=== PATIENT | male | born 1990 ===

== ENCOUNTER 2017-10-05 12:03 | Emergency (ER) | payer OTHER ==
[2017-10-05] MEDS ORDERED: DiphenhydrAMINE 50 mg/ml Inj IVP STA (12:51)
[2017-10-05] MEDS ORDERED: Sodium Chloride 0.9% 1,000 ML IV ONE (12:52)
[2017-10-05 13:01] LABS: BASO % 0.8 % (0.0-2.0); EOS # 0.2 K/uL (0.0-0.7); EOS % 4.2 % (0.0-4.0); HEMOGLOBIN 13.6 g/dL (12.0-18.0); LYMPH # 1.7 K/uL (1.0-4.3); LYMPH % 31.2 % (20.0-40.0); MEAN CELL VOLUME 84.5 fL (80.0-94.0); MEAN CORPUSCULAR HEMOGLOBIN 27.9 pg (27.0-31.0); MEAN PLATELET VOLUME 9.4 fL (7.2-11.7); MONO # 0.7 K/uL (0.0-0.8); NEUT # 2.8 K/uL (1.8-7.0); NEUT % 50.8 % (50.0-75.0); RBC 4.89 Mil/uL (4.40-5.90); RED CELL DISTRIBUTION WIDTH 14.3 % (11.5-14.5); WHITE BLOOD COUNT 5.5 K/uL (4.8-10.8)
[2017-10-05] MEDS ORDERED: DiphenhydrAMINE 50 mg/ml Inj ONE (13:01)
[2017-10-05] MEDS ORDERED: Sodium Chloride 0.9% 1,000 ML ONE (13:01)
[2017-10-05 13:13] LABS: ALB/GLOB RATIO 1.3 (1.0-2.1); ALBUMIN 4.4 g/dL (3.5-5.0); ALT/SGPT 38 U/L (21-72); AST/SGOT 26 U/L (17-59); BLOOD UREA NITROGEN 14 mg/dL (9-20); CALCIUM 9.2 mg/dl (8.6-10.4); GFR AFRICAN-AMERICAN > 60; GFR NON-AFRICAN AMERICAN > 60
--- NOTE | 2017-10-05 13:40 | C.PDOC ---
History Of Present Illness 27yo male, no past medical history, comes to ER with complaints of a frontal headache x 2 weeks. He reports associated nausea, vomiting and lightheadedness and states he has not had such episodes before. Patient denies any diarrhea, fever, rash, numbness, weakness, vision changes, shortness of breath or chest pain. Time Seen by Provider: 10/05/17 12:22 Chief Complaint (Nursing): Headache History Per: Patient History/Exam Limitations: no limitations Onset/Duration Of Symptoms: Days, Persistent Current Symptoms Are (Timing): Still Present Pain Scale Rating Of: 7 Quality: "Pain" Preceeding Symptoms: None Recent travel outside of the [place]: No Additional History Per: Patient Past Medical History Reviewed: Historical Data, Nursing Documentation, Vital Signs Vital Signs: Last Vital Signs Temp 98.5 F 10/05/17 15:57 Pulse 62 10/05/17 15:57 Resp 20 10/05/17 15:57 BP 116/71 10/05/17 15:57 Pulse Ox 98 10/05/17 15:57 - Medical History PMH: No Chronic Diseases Surgical History: No Surg Hx Family History: States: No Known Family Hx - Social History Hx Alcohol Use: Yes Hx Substance Use: No - Immunization History Hx Tetanus Toxoid Vaccination: No Hx Influenza Vaccination: No Hx Pneumococcal Vaccination: No Review Of Systems Except As Marked, All Systems Reviewed And Found Negative. Constitutional: Negative for: Fever, Chills Cardiovascular: Positive for: Light Headedness. Negative for: Chest Pain Respiratory: Negative for: Shortness of Breath Gastrointestinal: Positive for: Nausea, Vomiting. Negative for: Abdominal Pain Neurological: Positive for: Headache. Negative for: Weakness, Numbness, Dizziness Physical Exam - Physical Exam Appears: Non-toxic, No Acute Distress Skin: Normal Color, Warm, Dry, No Rash Head: Atraumatic, Normacephalic Eye(s): bilateral: Normal Inspection, PERRL, EOMI Nose: Normal Oral Mucosa: Moist Neck: Normal ROM, Supple Chest: Symmetrical Cardiovascular: Rhythm Regular Respiratory: Normal Breath Sounds Gastrointestinal/Abdominal: Normal Exam, Soft, No Tenderness Back: Normal Inspection Extremity: Normal ROM, No Pedal Edema, No Deformity, No Swelling Neurological/Psych: Oriented x3, Normal Motor Gait: Steady ED Course And Treatment - Laboratory Results Result Diagrams: 10/05/17 12:56 10/05/17 12:56 O2 Sat by Pulse Oximetry: 98 (RA) Pulse Ox Interpretation: Normal Progress Note: Labs, and CT head ordered. Patient given IV Fluids, reglan and benadryl Medical Decision Making Medical Decision Making: On re-exam, the patient reports improvement of symptoms. Lungs are CTA, heart is RRR, abdomen is soft, non-tender and tolerating PO well. Ambulatory in the ED with steady gait. Follow up with the medical doctor within 1-2 days, Return if worsened. Disposition - Disposition Referrals: Timothy Soriano MD [Staff Provider] - Disposition: HOME/ ROUTINE Disposition Time: 15:28 Condition: GOOD Additional Instructions: Follow up with the medical doctor within 1-2 days, Return if worsened. Prescriptions: Ibuprofen [Motrin] 1 tab PO TID PRN #30 tab PRN Reason: Pain Meclizine HCl 25 mg PO TID PRN #25 tablet PRN Reason: Dizziness Instructions: Vertigo (a Type of Dizziness) Forms: [employer] (Japanese) - Clinical Impression Clinical Impression: Vertigo - PA / RESTAURANT ASSISTANT MANAGER / Resident Statement MD/DO has reviewed & agrees with the documentation as recorded. - Scribe Statement The provider has reviewed the documentation as recorded by the Cierra Sheehan Provider Attestation: All medical record entries made by the Cierra were at my direction and personally dictated by me. I have reviewed the chart and agree that the record accurately reflects my personal performance of the history, physical exam, medical decision making, and the department course for this patient. I have also personally directed, reviewed, and agree with the discharge instructions and disposition.
--- NOTE | 2017-10-05 13:50 | CT ---
Date of service: 10/05/2017 PROCEDURE: CT HEAD WITHOUT CONTRAST. HISTORY: Headache, dizziness COMPARISON: None available. TECHNIQUE: Axial computed tomography images were obtained through the head/brain without intravenous contrast. Radiation dose: Total exam DLP = 1170.66 mGy-cm. This CT exam was performed using one or more of the following dose reduction techniques: Automated exposure control, adjustment of the mA and/or kV according to patient size, and/or use of iterative reconstruction technique. FINDINGS: HEMORRHAGE: No intracranial hemorrhage. BRAIN: No mass effect or edema. No atrophy or chronic microvascular ischemic changes. VENTRICLES: Unremarkable. No hydrocephalus. CALVARIUM: Unremarkable. PARANASAL SINUSES: Unremarkable as visualized. No significant inflammatory changes. MASTOID AIR CELLS: Unremarkable as visualized. No inflammatory changes. OTHER FINDINGS: None. IMPRESSION: Normal CT of the Head.
[2017-10-05 15:31] VITALS: O2SAT 98
[2017-10-05 15:59] VITALS: BP 116/71; PULSE 62; RESP 20; TEMP 98.5
== END 2017-10-05 15:59 | disposition home or self-care (01) ==
LOC: C.ER 12:03
DX: R42 Dizziness and giddiness (principal)
CPT/HCPCS: 70450; 80053; 84443; 85025; 96361; 96374; 96375; 99285; J1200; J2765; J7030